=== PATIENT | female | born 1985 | race African-American/Black ===

== ENCOUNTER 2018-10-22 22:39 | Emergency (ER) | payer MEDICARE ==
[~2018-10-22] VITALS: Ht 167.6 cm; Wt 74.8 kg
--- OUTSIDE RECORDS SUMMARY | 2018-10-22 22:41 | XMS REPORT ---
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 Allergies, Adverse Reactions, Alerts This patient has no known allergies or adverse reactions. Medications This patient has no known medications. Encounters Start Date/Time End Date/Time Encounter Type Admission Type Attending [facility] Facility Care Department Encounter ID 2018-07-11 00:00:00 2018-07-11 00:00:00 Outpatient [facility] [id number] 2018-06-22 00:00:00 2018-06-22 00:00:00 Outpatient [facility] [id number] 2018-06-14 08:15:53 2018-06-14 08:15:53 Outpatient [facility] [id number] 2018-06-07 08:52:21 2018-06-07 08:52:21 Outpatient [facility] [id number] 2018-05-31 08:43:38 2018-05-31 08:43:38 Outpatient [facility] [id number] 2018-05-26 16:50:00 2018-05-26 16:50:00 Emergency [facility] [id number]
--- OUTSIDE RECORDS SUMMARY | 2018-10-22 22:41 | XMS REPORT | Clinical Summary ---
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 unspecified trigger Active loratadine (CLARITIN) 10 Take 1 tablet 30 tablet 0 mg tabletIndications: by mouth 8 Allergic rhinitis, daily. unspecified seasonality, unspecified trigger Active predniSONE (DELTASONE) 20 Take 1 tablet 12 tablet 0 mg tabletIndications: by mouth 2 8 Allergic reaction, times daily. sequela, Hives of unknown origin Active famotidine (PEPCID) 20 mg Take 1 tablet 60 tablet 0 tabletIndications: by mouth 2 8 Allergic reaction, times daily. sequela, Hives of unknown origin Active ibuprofen (MOTRIN) 200 mg Take 1 tablet 20 tablet 0 tabletIndications: by mouth 8 Streptococcal every 6 hours pharyngitis, Acute URI as needed for Pain. Active hydrocortisone 1 % Apply to 28.35 g 0 topical creamIndications: affected area 8 Allergic reaction, 2 times sequela, Hives of unknown daily. origin Active vitamin A and D Apply to 45 g 0 ointmentIndications: affected area 8 Dermatitis as needed for dry skin. Active Phenylephrine HCl (NASAL Take 1 tablet 18 tablet 0 DECONGESTANT PE) 10 mg by mouth 8 tabletIndications: Nasal every 4 hours congestion with as needed for rhinorrhea Other (nasal congestion). Active sertraline (ZOLOFT) 50 mg Take 1 tablet 30 tablet 0 tabletIndications: by mouth 8 Moderate episode of daily. recurrent major depressive disorder Active hydrOXYzine (ATARAX) 25 Take 1-2 tabs 30 tablet 0 mg tabletIndications: by mouth 8 Moderate episode of nightly as recurrent major needed for depressive disorder sleep and anxiety.. 03/31/2018 diphenhydrAMINE Take 1 24 capsule 0 (BENADRYL) 25 mg capsule by 8 capsuleIndications: Hives mouth every 6 hours as needed for up to 10 days for Itching. 04/06/2018 amoxicillin (AMOXIL) 500 Take 1 30 capsule 0 mg capsuleIndications: capsule by 8 Streptococcal sore throat mouth 3 times daily for 10 days. 04/21/2018 hydrOXYzine (ATARAX) 25 Take 1 tablet 30 tablet 0 mg tabletIndications: by mouth 3 8 Full body hives, Anxiety times daily as needed for up to 10 days for Itching. 05/03/2018 Discontinued diphenhydrAMINE Take 1 24 capsule 0 (BANOPHEN) 25 mg capsule by 8 capsuleIndications: mouth every 6 Allergic reaction, hours as sequela, Hives of unknown needed for up origin to 10 days for Itching, Allergies or rash. 06/07/2018 Discontinued hydrocortisone 1 % Apply to 28.35 g 0 topical creamIndications: affected area 8 Allergic reaction, 2 times sequela, Hives of unknown daily. origin 05/13/2018 diphenhydrAMINE Take 1 24 capsule 0 (BENADRYL) 25 mg capsule by 8 capsuleIndications: mouth every 6 Hives, Allergic reaction, hours as subsequent encounter, needed for up Medication refill to 10 days for Itching, Allergies or rash. 06/10/2018 penicillin v potassium Take 1 tablet 40 tablet 0 (VEETID) 500 mg by mouth 4 8 tabletIndications: times daily Streptococcal pharyngitis for 10 days. 06/07/2018 ZEYWB-KE-HYZ (TUSSIN CF) Take 10 mL by 118 mL 0 30-10-100 mg/5 mL mouth 4 times 8 syrupIndications: daily as Streptococcal needed for up pharyngitis, Acute URI to 7 days for Cough or Congestion. 06/17/2018 diphenhydrAMINE Take 1 30 capsule 0 (BANOPHEN) 25 mg capsule by 8 capsuleIndications: mouth every 6 Allergic rhinitis, hours as unspecified seasonality, needed for up unspecified trigger to 10 days for Itching. Active Problems Problem Noted Date Severely overweight 03/21/2018 Dietary counseling 03/21/2018 Exercise counseling 03/21/2018 Homelessness 02/08/2018 Encounters Care Team Description Date Type Specialty Gabby Vivar MD Moderate episode of recurrent major depressive disorder (Primary Dx) 06/14/2018 Office Visit Psychiatry Nannette Ng NP Nasal congestion with rhinorrhea (Primary Dx); Allergic reaction, sequela; Hives of unknown origin; Allergic rhinitis, unspecified seasonality, unspecified trigger; Dermatitis; Preventative health care; Papanicolaou smear declined 06/07/2018 Office Visit Family Practice 06/07/2018 Travel Nannette Ng NP Williams, Deidra D, NP Streptococcal pharyngitis (Primary Dx); Acute URI; Health care maintenance; Overweight (BMI 25.0-29.9); Homeless; Health education 05/31/2018 Office Visit Family Practice Isaac Castro MD 05/26/2018 Emergency Emergency Medicine Kristen Gibson I 05/04/2018 Telephone Psychology Anabel Vivar NP Hives (Primary Dx); Allergic reaction, subsequent encounter; Medication refill; Homeless; Health education 05/03/2018 Office Visit Family Practice Anabel Vivar NP Allergic reaction, sequela (Primary Dx); Hives of unknown origin; Anxiety; Homeless; Health education 04/26/2018 Office Visit Family Practice Anabel Vivar NP Allergic reaction, sequela; Hives of unknown origin; Anxiety 04/26/2018 Orders Only [facility] Kristen Gibson I 04/12/2018 Telephone Psychology Nannette Ng NP Full body hives (Primary Dx); Anxiety; Homelessness; Severely overweight; Dietary counseling; Exercise counseling; Positive depression screening; Health care maintenance 04/11/2018 Office Visit Family Practice Nannette Ng NP Positive depression screening 04/11/2018 Orders Only Family Practice Nannette Ng V, Galina Wadsworth, FIFI Streptococcal sore throat (Primary Dx); Tobacco abuse; Tobacco abuse counseling; Screening for HIV (human immunodeficiency virus); Homeless; Allergic rhinitis, unspecified seasonality, unspecified trigger 03/27/2018 Office Visit Family Practice Nannette Ng V, FIFI Hives (Primary Dx); Severely overweight; Homelessness; Dietary counseling; Exercise counseling; Papanicolaou smear declined 03/21/2018 Office Visit Family Practice Nannette Ng V, Piedad Bustos, [employer] PPD screening test (Primary Dx); Homelessness 02/08/2018 Nurse Only after 10/21/2017 Immunizations Name Dates Previously Given Next Due PPD 02/08/2018 Family History Medical History Relation Name Comments Cancer Father Relation Name Status Comments Father Alive Mother Alive Social History Date Tobacco Use Types Packs/Day Years Used Current Every Day Smoker Cigarettes 0.5 3 Smokeless Tobacco: Never Used Tobacco Cessation: Ready to Quit: No; Counseling Given: Yes Alcohol Use Drinks/Week oz/Week Comments No Sex Assigned at Date Recorded Not on file Industry Job Start Date Occupation Not on file Not on file Not on file Travel End Travel History Travel Start No recent travel history available. Last Filed Vital Signs Time Taken Vital Sign Reading 06/14/2018 8:16 AM [employer] Blood Pressure 123/73 06/14/2018 8:16 AM [employer] Pulse 57 06/14/2018 8:16 AM [employer] Temperature 36.9 C (98.4 F) 06/14/2018 8:16 AM [employer] Respiratory Rate 20 05/26/2018 7:20 PM [employer] Oxygen Saturation 99% - Inhaled Oxygen - Concentration 06/14/2018 8:16 AM [employer] Weight 78.6 kg (173 lb 3.2 oz) 06/14/2018 8:16 AM [employer]IC[employer] Height 167.6 cm (5' 6") 06/14/2018 8:16 AM [employer] Body Mass Index 27.96 Plan of Treatment Health Maintenance Due Date Last Done Comments Cervical Cancer Scrn (3 2005 Yrs) IMM Influenza Seasonal 04/03/2019Apr to September (>/=19 yrs) Goals Goal Patient Associated Recent Progress Patient-Stat Author Goal Type Problems ed? Obtain more stable housing Lifestyle No Rashel, mehrdad Liu Procedures Comments Procedure Name Priority Date/Time Associated Diagnosis POC GROUP A STREP SCREEN Routine 05/31/2018 Acute URI Streptococcal pharyngitis POC RAPID HIV Routine 03/27/2018 Screening for HIV (human immunodeficiency virus) POC GROUP A STREP SCREEN Routine 03/27/2018 Streptococcal sore throat GLUCOSE POC Routine 03/21/2018 9:40 AM CDT after 10/21/2017 Results * POC GROUP A STREP SCREEN (05/31/2018) Only the most recent of 2 results within the time period is included. Group A Strep POSITIVE Neg - Neg POC GAS (Contr) Pass Pass - Pass * POC RAPID HIV (03/27/2018) Rapid HIV negative Result Rapid HIV pass Control Specimen Blood * GLUCOSE POC (03/21/2018 9:40 AM CDT) Glucose POC 76 74 - 106 mg/dL [facility] Performing Organization Address City/State/Zipcode Phone Number MISYS [facility] after 10/21/2017 Insurance Type Payer Benefit Subscriber ID Effective Phone Address Plan / Dates Group HOMELESS CHARIS HOMELESS xxxxxxx 2018-P [phone] [id number] [id number] [address] [place] [address] (Work)
== END 2018-10-22 23:53 | disposition home or self-care (01) ==
LOC: FSED 22:39
DX: L50.8 Other urticaria (principal)
CPT/HCPCS: 99283

== ENCOUNTER 2018-12-23 20:52 | Emergency (ER) | payer MEDICARE ==
[~2018-12-23] VITALS: Ht 165.1 cm; Wt 81.6 kg
== END 2018-12-23 21:05 | disposition left against medical advice (07) ==
LOC: ER 20:52
DX: R21 Rash and other nonspecific skin eruption (principal)